=== PATIENT | male | born 1980 | race Caucasian/White ===

== ENCOUNTER 2021-01-09 19:21 | Emergency (ER) | payer OTHER ==
[~2021-01-09] VITALS: Ht 177.8 cm; Wt 113.4 kg
[2021-01-09] MEDS ORDERED: NORCO5 PO (22:37)
[2021-01-09 22:53] VITALS: BP 115/65
== END 2021-01-09 22:54 | disposition home or self-care (01) ==
LOC: M.ERS 19:21
DX: S80.02XA Contusion of left knee, initial encounter (principal); Z88.6 Allergy status to analgesic agent; W10.9XXA Fall (on) (from) unspecified stairs and steps, initial encounter; Y93.89 Activity, other specified; Y92.89 Other specified places as the place of occurrence of the external cause; Y99.8 Other external cause status

== ENCOUNTER 2021-04-18 10:50 | Emergency (ER) | payer OTHER ==
[~2021-04-18] VITALS: Ht 177.8 cm; Wt 117.9 kg
[~2021-04-18 10:50] MED LIST: NORCO5 PO
[2021-04-18 11:42] VITALS: BP 156/88
== END 2021-04-18 11:42 | disposition home or self-care (01) ==
LOC: M.ERS 10:50
DX: J06.9 Acute upper respiratory infection, unspecified (principal); Z20.822 Contact with and (suspected) exposure to COVID-19; Z88.6 Allergy status to analgesic agent; Z98.890 Other specified postprocedural states